=== PATIENT | male | born 1995 | race Hispanic/Latino ===

== ENCOUNTER 2016-07-02 09:55 | Emergency (ER) | payer OTHER ==
[~2016-07-02] VITALS: Ht 167.6 cm; Wt 86.2 kg
--- NOTE | 2016-07-02 10:19 | ED EYE COMPLAINT ---
History of Present Illness General Chief Complaint: Eye Problems Stated Complaint: RIGHT EYE RED, IRRITATED Source: patient, family Exam Limitations: no limitations Vital Signs & Intake/Output Vital Signs & Intake/Output Vital Signs Date Time Temp Pulse Resp B/P B/P Pulse O2 O2 Flow FiO2 Mean Ox Delivery Rate 07/02 1001 98.3 98 15 160/99 100 Room Air Allergies Coded Allergies: Penicillins (Severe, ANAPHYLAXIS 07/02/16) Reconcile Medications Ciprofloxacin (Ciloxan) 0.3 % DROPS 1 GTT OPH TID CORNEAL ABRASION Ketorolac Tromethamine (Acular) 0.5 % DROPS 1 GTT OPH 4 TIMES/DAY PRN PAIN Triage Note: PT TO ED FOR R EYE IRRITATION, STATES IT BEGAN TO GET IRRITATED YESTERDAY WHILE WEARING CONTACTS, TOOK CONTACTS OUT AND ATTEMPTED TO USE RENEW DROPS WITH NO SUCCESS. PT REPORTS BLURRY VISION AT BASELINE DUE TO NO CONTACTS AND NO GLASSES WITH HIM IN ED. Triage Nurses Notes Reviewed? yes HPI: Patient was wearing his contacts yesterday when his right eye began to bother him. Patient took his contacts out but the symptoms worsen. Patient feels that there is something in his eye. Pain worsens whenever he blinks his eye. Positive clear watery discharge. No blurry vision. There is no radiation of the pain. Patient rates it as moderate on the scale. Patient has no other complaints. Past History Travel History Traveled to [place] past 21 day No Medical History Any Pertinent Medical History? none Neurological: NONE EENT: NONE Cardiovascular: NONE Respiratory: NONE Gastrointestinal: NONE Hepatic: NONE Renal: NONE Musculoskeletal: NONE Psychiatric: NONE Endocrine: NONE Blood Disorders: NONE Cancer(s): NONE Surgical History Surgical History: non-contributory Psychosocial History What is your primary language Latvian Tobacco Use: Never used ETOH Use: denies use Illicit Drug Use: denies illicit drug use Family History Hx Contributory? No Review of Systems Review of Systems Constitutional: Reports: no symptoms. Eyes: Reports: see HPI, foreign body sensation. Ear: Reports: no symptoms. Respiratory: Reports: no symptoms. Cardiovascular: Reports: no symptoms. Neurological/Psychological: Reports: no symptoms. Immunologic/Allergic: Reports: no symptoms. Physical Exam General Appearance: well developed/nourished, alert, awake, anxious, moderate distress General Inspection: normal inspection Eyelid: normal inspection Conjunctiva/Sclera: normal inspection Cornea: normal inspection EOM: intact Pupil: normal accommodation, normal pupil, PERRL General Inspection: normal inspection Eyelid: normal inspection, everted for exam, see diagram Conjunctiva/Sclera: normal inspection Cornea: examined w/fluorescein, see diagram, abrasion EOM: intact Pupil: normal accommodation, normal pupil, PERRL Anterior Chamber: normal inspection Posterior Segments: normal funduscopic Eye Right 1) ABRASION Physical Exam Head: atraumatic, normal appearance Mouth/Throat: normal mouth inspection, pharynx normal Cardiovascular/Respiratory: normal breath sounds, normal peripheral pulses, regular rate/rhythm, no respiratory distress Neurologic/Psych: no motor/sensory deficits, awake, alert, oriented x 3, normal mood/affect Progress Differential Diagnosis: corneal abrasion, corneal foreign body, conjunctivitis Plan of Care: CILOXAN AND ACULAR Departure Departure Disposition: HOME OR SELF CARE Condition: Stable Clinical Impression Primary Impression: Corneal abrasion due to contact lens Referrals: PATIENT HAS NO PRIMARY CARE DR (PCP/Family) Additional Instructions: FOLLOW UP WITH YOU EYE DOCTOR] RETURN FOR ANY CONCERNS Departure Forms: Customer Survey General Discharge Information Prescriptions: Current Visit Scripts Ciprofloxacin (Ciloxan) 1 GTT OPH TID #5 ML Ketorolac Tromethamine (Acular) 1 GTT OPH 4 TIMES/DAY PRN PAIN #5 ML
[2016-07-02] MEDS ORDERED: CILOXAN5 ML OPH (10:57)
[2016-07-02] MEDS ORDERED: ACULAR5 ML OPH (10:57)
== END 2016-07-02 11:05 ==
LOC: ERH 09:55
DX: S05.01XA Injury of conjunctiva and corneal abrasion without foreign body, right eye, initial encounter (principal)